=== PATIENT | male | born 1960 | race Caucasian/White ===

== ENCOUNTER → 2016-08-17 | Outpatient (CLI) | payer OTHER ==
[~2016-08-17] MED LIST: AGM875 PO; BSP15 PO; BUPR-83 PO; EFFSR150 PO; TESTIM TD
[2016-08-17 12:17] LABS: BASO % 0.6 %; BASO ABS # 0.03 K/uL (0-0.2); COMPLETE YES; EOS % 3.7 %; HEMATOCRIT 42.6 % (42-52); IG% 0.2 %; LYMPH % 39.7 %; LYMPH ABS # 2.02 K/uL (1.2-3.4); MEAN CELL VOLUME 88.2 fL (80-100); MEAN CORPUSCULAR HEMOGLOBIN 29.2 pg (25-34); MEAN CORPUSCULAR HGB CONC 33.1 g/dl (32-36); MEAN PLATELET VOLUME 10.9 fL (7.4-10.4); MONO % 10.2 %; NEUT % 45.6 %; PLATELET COUNT 199 K/uL (130-400); RED BLOOD COUNT 4.83 M/uL (4.7-6.1); WHITE BLOOD COUNT 5.09 K/uL (4.8-10.8)
[2016-08-17 12:36] LABS: ALT/SGPT 38 U/L (12-78); BLOOD UREA NITROGEN 17 mg/dl (7-18); BUN/CREATININE RATIO 15.6 (10-20); CARBON DIOXIDE 28 mmol/L (21-32); CHLORIDE 106 mmol/L (98-107); CHOLESTEROL 204 mg/dl (0-200); GLUCOSE 101 mg/dl (70-99); POTASSIUM 4.3 mmol/L (3.5-5.1); SODIUM 140 mmol/L (136-145); TRIGLYCERIDES 262 mg/dl (0-150); VERY LOW DENSITY LIPOPROT CALC 52 mg/dl
[2016-08-17 12:46] LABS: ALB/GLOB RATIO 1.3 (0.9-2); ALKALINE PHOSPHATASE 80 U/L (45-117); AST/SGOT 19 U/L (15-37); CHOLESTEROL/HDL RATIO 6.2; HDL CHOLESTEROL 33 mg/dl; LDL CHOLESTEROL CALCULATED 119 mg/dl; PROSTATE SPECIFIC ANTIGEN 0.557 ng/ml (0.000-4.000)
[2016-08-17 15:51] LABS: TESTOSTERONE,TOTAL 124.6 ng/dl
== END | disposition home or self-care (01) ==
LOC: C.LABBFT 08:10
PROVIDERS: ATTEND Internal Medicine
DX: Z00.00 Encounter for general adult medical examination without abnormal findings (principal); F41.9 Anxiety disorder, unspecified; G47.30 Sleep apnea, unspecified; Z11.59 Encounter for screening for other viral diseases; I10 Essential (primary) hypertension; N52.9 Male erectile dysfunction, unspecified

== ENCOUNTER → 2016-08-23 | Outpatient (CLI) | payer OTHER ==
[~2016-08-23] MED LIST changes: +GADAVIST IV PRN
--- NOTE | 2016-08-23 16:51 | DIAGNOSTIC IMAGING REPORT ---
MRI OF THE BRAIN COMBO INTERNAL AUDITORY CANAL PROTOCOL CLINICAL HISTORY: Tinnitus. Bilateral hearing loss, left greater than right. COMPARISON STUDY: No priors. TECHNIQUE: MRI of the brain was performed utilizing various T1 and T2-weighted sequences in the axial, sagittal, and coronal planes. Contrast-enhanced sequences were acquired following the administration of 10 cc of Gadavist. High-resolution imaging through the skull base was performed both pre and postcontrast for assessment of the internal auditory canals. FINDINGS: Brain parenchyma: There are scattered tiny foci of subcortical and periventricular microangiopathic disease. The brain parenchyma is otherwise normal in appearance. There is no hemorrhage or mass effect. There is no restricted diffusion to suggest acute ischemia. No enhancing mass lesion is identified on the postcontrast images. Hui-white matter differentiation is preserved. No extra-axial fluid collection is seen. The cerebellar tonsils are normal in configuration. Ventricles, sulci, and cisterns: Normal in configuration. Interval internal canals: There is no mass lesion seen within the cerebellopontine angle bilaterally. No mass lesion or abnormal enhancement is seen along the course of the internal auditory canals bilaterally. The middle ear structures are normal as imaged. Pituitary and sella: Partially empty sella is incidentally noted. Intracranial vasculature: Normal flow voids are maintained at the skull base. Orbits: The bony orbits are grossly intact. Orbital contents are normal in appearance. Sinuses and mastoids: There is trace mucosal thickening within the ethmoid sinuses and the maxillary antra. The remaining paranasal sinuses are clear. There are trace mastoid effusions. Calvarium: Unremarkable. Cervical cord: Partially visualized cervical spinal cord is normal in morphology and signal intensity. 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 IMPRESSION: 1. No acute intracranial abnormality. 2. Unremarkable MRI assessment of the internal auditory canals. Electronically signed by: Uday Bishop M.D. 08/23/2016 4:49 PM Dictated Date/Time: 08/23/2016 4:42 PM
== END | disposition home or self-care (01) ==
LOC: C.MRI 15:36
PROVIDERS: ATTEND Physician Assistant
DX: H93.19 Tinnitus, unspecified ear (principal)

== ENCOUNTER 2017-04-13 11:20 | Emergency (ER) | payer OTHER ==
[~2017-04-13] VITALS: Ht 193 cm; Wt 104.7 kg
[~2017-04-13 11:20] MED LIST changes: -GADAVIST IV PRN
[2017-04-13 11:22] VITALS: TEMP 36.3; Ht 193 cm; Wt 104.7 kg
[2017-04-13] MEDS ORDERED: KETOROLAC TROMETHAMINE 60 MG/2 ML VIAL IM STA (11:56)
[2017-04-13] MEDS ORDERED: CLON1TAB3 PO (12:05)
[2017-04-13] MEDS ORDERED: BUPR200T2 PO (12:05)
[2017-04-13] MEDS ORDERED: BUSP15TA70 PO (12:05)
[2017-04-13] MEDS ORDERED: AMIT10TA6 PO (12:05)
[2017-04-13] MEDS ORDERED: VENL150T33 PO (12:05)
--- NOTE | 2017-04-13 13:35 | DIAGNOSTIC IMAGING REPORT ---
L RIBS UNILATERAL WITH PA CHEST CLINICAL HISTORY: LEFT RIB INJURY ONE WEEK AGO trauma COMPARISON STUDY: None FINDINGS: Nondisplaced cortical fractures left seventh, eighth and 10th ribs. All remaining ribs are unremarkable. Lungs are clear. Negative for pneumothorax. IMPRESSION: 1. Nondisplaced cortical fractures left seventh, eighth and 10th ribs. 2. No evidence pneumothorax. The above report was generated using voice recognition software. It may contain grammatical, syntax or spelling errors. Electronically signed by: Clyde Greene M.D. 04/13/2017 1:34 PM Dictated Date/Time: 04/13/2017 1:32 PM
[2017-04-13] MEDS ORDERED: OXYC1TAB3 PO (13:56)
--- NOTE | 2017-04-13 13:56 | EMERGENCY ROOM VISIT NOTE ---
ED Visit Note First contact with patient: 11:28 CHIEF COMPLAINT: Left rib injury one week ago HISTORY OF PRESENT ILLNESS: Patient is a generally healthy 56-year-old white male who presents to emergency department for evaluation of left rib pain after an injury 1 week ago. He states that he was walking back from his yard after throwing out some cat litter. He stepped on a basketball hoop that was laying on the ground and slipped, falling and landing against the rim of the hoop on his left side. He had pain in the left ribs that initially was manageable, and intermittent. He applied ice then switch to heat. He was using ibuprofen which has been ineffective. The pain is not improving, which prompted him to come to the emergency department for evaluation. Pain is worse with any movements, specifically twisting. He denies shortness of breath, chest pain or difficulty breathing. He rates his pain a 10/10. He denies any abdominal pain , no back or flank pain. REVIEW OF SYSTEMS: Review of systems as per HPI. All other systems reviewed were negative. 10 systems reviewed. PMH: Electronic medical records are reviewed and summarized as above/below. See Problem List. SOCIAL HISTORY: Patient lives at home with his family. Nonsmoker. PHYSICAL EXAM: Vital Signs: Reviewed Nurse's notes. GENERAL: Patient is a pleasant albeit uncomfortable appearing 56-year-old white male who is awake and alert and in mild distress due to discomfort. Chest: There are no signs of deformities, contusions or abrasions to the anterior chest wall. There is no obvious crepitus or paradoxical chest rise. The patient has an area of ecchymosis over the inferior left lateral rib cage. He has tenderness to palpation of the left ribs in the midaxillary line. No flail segment. Heart: Regular rate, and regular rhythm. There is a normal S1 and S2 with no murmurs, clicks, or gallops appreciated. Lungs: Breath sounds equal and clear to auscultation without wheezes, rales, or rhonchi heard. Abdomen: Soft, completely nontender, nondistended, with good bowel sounds. No pain in the left upper quadrant. There is no sign of trauma such as contusions , abrasions or penetrations. There are no palpable pulsatile masses or hepatosplenomegaly. There is no guarding, rigidity, or rebound noted. Back: The entire thoracic, lumbar, and sacral spine were palpated. No discomfort over the thoracic spine and lumbar spine. There are no obvious step- offs or deformities noted. There are no obvious signs of trauma such as contusions abrasions penetrations noted to the back. EMERGENCY DEPARTMENT COURSE: The patient was seen and evaluated as above. Old records were reviewed. He was agreeable to the patient for discomfort, but reported that he needed to be able to drive, therefore was given Toradol 60 mg IM. Chest and rib films were obtained and consistent with left seventh eighth and 10th rib fractures. No pneumothorax. X-ray findings were discussed with the patient. Conservative care measures were discussed. He was issued an incentive spirometer provided oxycodone for pain management. He rated his discomfort a 2/10 on reassessment. Differential diagnoses entertained included rib fracture, rib contusion, pneumothorax, retroperitoneal or intra-abdominal injury, among others. Medication reconciliation: I attest that I have personally reviewed the patient' s current medication list. Blood pressure screening : Patient was found to have normal blood pressure on screening and does not require follow-up. Patient was reviewed in the [facility] Prescription Drug Monitoring Program, and there were no red flags noted. L RIBS UNILATERAL WITH PA CHEST CLINICAL HISTORY: LEFT RIB INJURY ONE WEEK AGO trauma COMPARISON STUDY: None FINDINGS: Nondisplaced cortical fractures left seventh, eighth and 10th ribs. All remaining ribs are unremarkable. Lungs are clear. Negative for pneumothorax. IMPRESSION: 1. Nondisplaced cortical fractures left seventh, eighth and 10th ribs. 2. No evidence pneumothorax. Problem List Medical Problems: (1) Anxiety State Nos Status: Chronic (2) Depressive Disorder Nec Status: Chronic Current/Historical Medications Scheduled Amitriptyline Hcl (Elavil), 20 MG PO HS Bupropion (Wellbutrin Sr), 200 MG PO BID Buspirone Hcl (Buspar), 30 MG PO BID Clonazepam (Klonopin), 2 MG PO HS Venlafaxine Hcl (Venlafaxine Hcl Er), 150 MG PO DAILY Scheduled PRN Oxycodone Immediate Rel Tab (Roxicodone Ir), 1-2 TAB PO Q4H PRN for Severe Pain Allergies Coded Allergies: No Known Allergies (Verified Allergy, Unknown, 10/23/03) Vital Signs Date Time Temp Pulse Resp B/P (MAP) Pulse Ox O2 Delivery O2 Flow Rate FiO2 04/13/17 13:30 88 16 121/69 100 Room Air 04/13/17 11:22 36.3 93 18 131/79 98 Room Air Medications Administered Medications (Trade) Dose Ordered Sig/Charles Route Start Time Stop Time Status Last Admin Dose Admin Ketorolac Tromethamine (Toradol Inj) 60 mg NOW STAT IM 04/13/17 11:56 04/13/17 11:58 DC 04/13/17 12:12 60 MG Departure Information Impression Primary Impression: Multiple fractures of ribs of left side Prescriptions Oxycodone Immediate Rel Tab (ROXICODONE IR) 5 Mg Tab 1-2 TAB PO Q4H Y for Severe Pain, #30 TAB For Initial Treatment Prov: Senia Francois PA 04/13/17 Referrals Margot Brooks D.O. (PCP) Patient Instructions [facility] Additional Instructions Apply ice to ribs for swelling and pain. Do deep breathing/incentive spirometer as instructed. Limit activities until ribs heal. Ibuprofen(Motrin, Advil) may be used for fever or pain. Use 600mg every six hours as needed. Take with food. Avoid using more than 2400mg in a 24 hour period. Do not use 2400mg per day for more than three consecutive days without physician direction. Prolonged inappropriate use can lead to stomach upset or ulcers. (AND/OR) Acetaminophen(Tylenol) may be used for fever or pain. Use 1000mg every six hours as needed. Avoid using more than 3000mg in a 24 hour period. Oxycodone (OxyIR) 5mg: Take 1-2 pills every four hours for breakthrough pain. Avoid alcohol, operating machinery or dangerous equipment, working on ladders or roofs, DRIVING, or situations where being under the influence may be dangerous. It is recommended to use an vyke-mcn-wpuayzy stool softener such as Colace, 100mg twice daily while taking this medication to avoid constipation. Return to the emergency department for worsening pain, shortness of breath or difficulty breathing, fevers, cough or coughing up blood, worsening symptoms or as needed. Follow-up family doctor as needed.
[2017-04-13 14:11] VITALS: BP 128/60; PULSE 86; O2SAT 96
== END 2017-04-13 14:15 | disposition home or self-care (01) ==
LOC: C.EDB 11:21 → C.EDD 14:15
DX: S22.42XA Multiple fractures of ribs, left side, initial encounter for closed fracture (principal); W01.0XXA Fall on same level from slipping, tripping and stumbling without subsequent striking against object, initial encounter; Y92.017 Garden or yard in single-family (private) house as the place of occurrence of the external cause; F41.9 Anxiety disorder, unspecified; F32.9 Major depressive disorder, single episode, unspecified

== ENCOUNTER 2017-05-13 12:16 | Emergency (ER) | payer OTHER ==
[~2017-05-13] VITALS: Ht 193 cm; Wt 104.0 kg
[~2017-05-13 12:16] MED LIST changes: -AGM875 PO; +AMIT10TA6 PO; -BSP15 PO; -BUPR-83 PO; +BUPR200T2 PO; +BUSP15TA70 PO; +CLON1TAB3 PO; -EFFSR150 PO; +OXYC1TAB3 PO; -TESTIM TD; +VENL150T33 PO
[2017-05-13 12:37] VITALS: TEMP 36.7; Ht 193 cm; Wt 104.0 kg
[2017-05-13] MEDS ORDERED: HYDR-5688 PO (13:11)
[2017-05-13] MEDS ORDERED: PENI500T2 PO (13:11)
[2017-05-13 13:44] VITALS: BP 135/76; PULSE 78; O2SAT 98
--- NOTE | 2017-05-15 09:29 | EMERGENCY ROOM VISIT NOTE ---
ED Visit Note First contact with patient: 12:41 CHIEF COMPLAINT: Left cheek swelling. HISTORY OF PRESENT ILLNESS: Mr. Baez is a 56-year-old white male who ambulates into the ED accompanied by his complaining of left-sided facial swelling. He reports he had dental work performed on , 4 days ago for a left mandibular dental issue he reports after the procedure he was feeling much better. Then today he reports she will from sleep with left-sided facial swelling and dental pain. Currently he describes a throbbing sensation in the area of teeth 21 and 22. He rates this discomfort 5/10. His pain is nonradiating. His pain worsens with palpation of the tooth and also the facial swelling in that area. He has not identified any alleviating factors related to the pain. He has not taken any medication for pain prior to arrival at the hospital. Associated with his pain is the swelling in this area. He denies any associated fevers, chills, sweats, skin eruptions, recent trauma to this area, upper respiratory tract symptoms, sore throat. REVIEW OF SYSTEMS: As noted above in History of Present Illness. 8 body systems were reviewed with this patient and found to be negative unless noted above otherwise. PMH: (1) Anxiety State Nos (2) Depressive Disorder Nec . CURRENT MEDICATION: Medications Dose Route/Sig Max Daily Dose Days Date Category Dose Instructions Elavil (Amitriptyline Hcl) 10 Mg Tab 20 Mg PO HS 04/13/17 Reported Klonopin (Clonazepam) 1 Mg Tab 2 Mg PO HS 04/13/17 Reported Buspar (Buspirone Hcl) 15 Mg Tab 30 Mg PO BID 04/13/17 Reported Wellbutrin Sr (Bupropion HCl) 200 Mg Ertab 200 Mg PO BID 04/13/17 Reported Venlafaxine Hcl Er (Venlafaxine Hcl) 150 Mg Tab 150 Mg PO DAILY 30 04/13/17 Reported . ALLERGIES TO MEDICATION: Patient denies. SOCIAL HISTORY: Patient is not currently employed; he lives with his and feels safe in his home environment; he denies tobacco use and admits to alcohol use. PHYSICAL EXAM: Vital Signs: Date Time Temp Pulse Resp B/P (MAP) Pulse Ox O2 Delivery O2 Flow Rate FiO2 05/13/17 13:44 78 20 135/76 98 05/13/17 12:37 36.7 96 18 123/82 97 Room Air General: 56 year-old white male in mild distress due to pain, nontoxic appearing , afebrile and hemodynamically stable. Neurological: Awake, alert and oriented to person, place and time. Answering questions appropriately and following commands. Skin: Warm, dry and pink. HEENT: Atraumatic and normocephalic. Facial swelling located over the anterior mandible. There is no erythema or local lymphangitis. Oral cavity is moist and pink. Airway is patent. Swelling and mild erythema was noted to the gingiva. No superficial abscesses were palpable. Speech is normal. No drooling. No intraoral trauma is noted. No cervical or submandibular lymphadenopathy. ED COURSE: Patient is assessed as noted above. Patient is educated about his findings and instructed on her treatment plan; he verbalizes understanding and agreement with this plan. CLINIC IMPRESSION: Dental abscess. DISPOSITION: Patient discharged home in stable condition; prior to departure he was reassessed and subjectively reported he was feeling the same. PLAN: Comfort measures were discussed including a sliding pain scale of ibuprofen, acetaminophen and [place]. His name was checked on the state database and no red flags were noted. He was given appropriate narcotic precautions. Patient was prescribed Pen-Vee K 500 mg 4 times a day for 10 days. Patient was encouraged to followup with personal dentist for definitive care and treatment. Patient was encouraged to return the ED for worsening/uncontrolled pain, fevers or any new/concerning symptoms.
== END 2017-05-13 13:46 | disposition home or self-care (01) ==
LOC: C.EDB 12:17 → C.EDD 13:46
DX: K04.7 Periapical abscess without sinus (principal); F32.9 Major depressive disorder, single episode, unspecified; F41.9 Anxiety disorder, unspecified; Z79.899 Other long term (current) drug therapy